=== PATIENT | male | born 1985 | race Two or more races ===

== ENCOUNTER 2017-11-09 22:56 | Emergency (ER) | payer BC, OTHER ==
[~2017-11-09] VITALS: Ht 172.7 cm; Wt 85.0 kg
[~2017-11-09 22:56] MED LIST: AMLO5TAB2 PO; ASPI-650 PO; ATOR40TA PO; CHLO25TA PO; CLON0.1T12 PO; LISI-170 PO; METO25TA91 PO
[2017-11-09] MEDS ORDERED: ENALAPRILAT 1.25 MG/ML, 2ML ONE (23:48)
[2017-11-10] MEDS ORDERED: ENALAPRILAT 1.25 MG/ML, 2ML IV ONE
[2017-11-10] MEDS ORDERED: SODIUM CHLORIDE FLUSH 10ML SYR IVF ONE
[2017-11-10 00:01] LABS: BASOPHILS # (AUTO) 0.03 x10^3/uL (0-0.1); BASOPHILS % (AUTO) 0 % (0-1); EOSINOPHILS # (AUTO) 0.06 x10^3/uL (0-0.4); EOSINOPHILS % (AUTO) 1 % (1-7); LYMPHOCYTES # (AUTO) 2.21 x10^3/uL (1-3.4); LYMPHOCYTES % (AUTO) 23 % (22-44); MD NO; MEAN CORPUSCULAR HEMOGLOBIN 31.8 pg (27.5-34.5); MEAN CORPUSCULAR HGB CONC 34.5 g/dL (33.2-36.2); MEAN CORPUSCULAR VOLUME 92.2 fL (81-97); MONOCYTES # (AUTO) 0.66 x10^3/uL (0.2-0.8); MONOCYTES % (AUTO) 7 % (2-9); NEUTROPHILS # (AUTO) 6.77 x10^3/uL (1.8-6.8); NEUTROPHILS % (AUTO) 70 % (42-75); PLATELET COUNT 254 x10^3/uL (130-400); RED BLOOD COUNT 4.99 x10^6/uL (4.38-5.82); RED CELL DISTRIBUTION WIDTH 13.2 % (9.4-14.8)
[2017-11-10 00:14] LABS: ALANINE AMINOTRANSFERASE 36 U/L (12-78); ALBUMIN 3.6 g/dL (3.4-5.0); ANION GAP 9 mmol/L (5-15); CALCIUM 8.5 mg/dL (8.5-10.1); CHLORIDE 105 mmol/L (98-107); CREATININE 1.41 mg/dL (0.7-1.3)
[2017-11-10 00:18] LABS: ALKALINE PHOSPHATASE 70 U/L (45-117); BILIRUBIN,TOTAL 0.7 mg/dL (0.2-1.0); TOTAL PROTEIN 7.3 g/dL (6.4-8.2); TROPONIN I < 0.015 ng/mL (0.000-0.045)
[2017-11-10 00:29] VITALS: BP 172/99
[2017-11-10 00:49] LABS: MICROSCOPIC NOT IND
[2017-11-10 00:51] LABS: CULTURE INDICATED? NO
== END 2017-11-10 01:21 | disposition home or self-care (01) ==
LOC: ED 23:20
DX: I12.9 Hypertensive chronic kidney disease with stage 1 through stage 4 chronic kidney disease, or unspecified chronic kidney disease (principal); N18.2 Chronic kidney disease, stage 2 (mild); R07.9 Chest pain, unspecified
CPT/HCPCS: 36415; 71045; 80053; 81003; 84484; 85025; 93005; 96374